=== PATIENT | male | born 1985 | race Caucasian/White ===

== ENCOUNTER 2017-01-03 20:44 | Emergency (ER) | payer MEDICAID ==
[~2017-01-03 20:44] MED LIST: Lidocaine 1%-Epi 1:100,000 20 mL Inj ONE
[2017-01-03] MEDS ORDERED: Succinylcholine Chloride 20 mg/mL 5 mL Inj ONE (20:45)
[2017-01-03] MEDS ORDERED: fentaNYL 2,500 mCg/250 mL 2,500 MCG in IV Premix 1 EACH IV SCH ×2 (20:50→21:08)
[2017-01-03] MEDS ORDERED: Propofol 10,000 mCg/mL 100 mL Inj ONE (20:52)
[2017-01-03] MEDS ORDERED: Vecuronium 1,000 mCg/mL 10 mL Inj ONE ×2 (20:53→20:54)
[2017-01-03 21:00] LABS: BASOPHILS % (AUTO) 0.3 % (0-3); EOSINOPHILS % (AUTO) 1.8 % (0-5); MONOCYTES % (AUTO) 4.9 % (4-12); Mean Corpuscular Hemoglobin 30.2 pg (27.0-35.0); Mean Corpuscular Volume 89.8 fL (81-100); NEUTROPHILS % (AUTO) 58.9 % (40-74); Platelet Count 335 bil/L (150-400)
[2017-01-03] MEDS ORDERED: TdaP Vaccine 0.5 mL Inj IM ONE (21:06)
[2017-01-03] MEDS ORDERED: Propofol Inj 1,000,000 MCG in IV Premix 1 EACH IV SCH (21:08)
[2017-01-03] MEDS ORDERED: Succinylcholine Chloride 20 mg/mL 5 mL Inj IVPUSH ONE (21:10)
[2017-01-03] MEDS ORDERED: fentaNYL-PF 50 mCg/mL 2 mL Inj IVPUSH ONE (21:10)
[2017-01-03] MEDS ORDERED: CeFAZolin Inj 2 GM in IV Premix 1 EACH IV ONE (21:10)
[2017-01-03] MEDS ORDERED: Ketamine 100 mg/mL 5 mL Inj IV ONE ×2 (21:10)
[2017-01-03] MEDS ORDERED: Vecuronium 1,000 mCg/mL 10 mL Inj IVPUSH ONE (21:10)
--- NOTE | 2017-01-03 21:21 | DRSVH ---
PROCEDURE: X-RAY CHEST ONE VIEW, PORTABLE ([id number]) INDICATIONS: CHECK TUBE TECHNIQUE: One view of the chest was acquired. COMPARISON: None. FINDINGS: Surgical changes and devices: Endotracheal tube is present approximately 39 mm stricture the loki. Nasogastric tube is present with its tip projecting below the left hemidiaphragm. Lungs and pleura: There is a mild appearance of streaky coarse opacities within the bases bilaterally . Mediastinum: Mediastinal contours appear normal. Heart size is normal. Bones and chest wall: No suspicious bony lesions. Overlying soft tissues appear unremarkable. IMPRESSION: Support lines as above. Streaky, course and appearance of bibasilar opacities. While this could represent prominent dependent changes, areas of pulmonary contusion or developing pneumonia ca nnot be cannot excluded. Dictated by: Alisia Jones M.D. on 01/03/2017 at 21:18 Approved by: Alisia Jones M.D. on 01/03/2017 at 21:19
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
[2017-01-03 21:47] LABS: APPEARANCE,URINE CLEAR (CLEAR,HAZY); COLOR,URINE YELLOW (YELLOW); OCCULT BLOOD,URINE NEGATIVE (NEGATIVE); PH,URINE 6.5 (5.0-8.0); UROBILINOGEN,URINE NORMAL (NORMAL)
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
== END 2017-01-03 21:40 | disposition short-term general hospital (02) ==
LOC: SED 20:44
DX: S02.92XA Unspecified fracture of facial bones, initial encounter for closed fracture (principal); S01.80XA Unspecified open wound of other part of head, initial encounter; T14.91 Suicide attempt; Y93.89 Activity, other specified; Y99.8 Other external cause status; Y92.9 Unspecified place or not applicable; Z78.1 Physical restraint status
CPT/HCPCS: 31500; 43753; 51702; 70450; 71010; 72125; 80053; 81001; 85025; 85610; 85730; 86850; 94799; 96365; 96375; 99291; G0390; J0330